=== PATIENT | female | born 1960 | race African-American/Black ===

== ENCOUNTER 2022-07-12 11:29 | Inpatient (IN) ==
[2022-07-12] MEDS ORDERED: FAMOTIDINE 20 MG/2 ML VIAL IV ONE (12:15)
[2022-07-12] MEDS ORDERED: ONDANSETRON 4 MG/2 ML VIAL IV PRN ×2 (12:31→15:35)
[2022-07-12] MEDS ORDERED: LACTATED RINGERS 1,000 ML IV SCH (13:00)
[2022-07-12] MEDS ORDERED: propofoL 200 MG/20 ML VIAL IV ONE ×2 (14:23→14:25)
[2022-07-12] MEDS ORDERED: ETOMIDATE 20 MG/10 ML VIAL IV ONE (14:23)
[2022-07-12] MEDS ORDERED: LIDOCAINE 2% 5 ML VIAL ONE (14:23)
[2022-07-12] MEDS ORDERED: fentaNYL 100 MCG/2 ML VIAL ONE (14:27)
[2022-07-12] MEDS ORDERED: PROMETHAZINE 25 MG/1 ML VIAL IM PRN (15:35)
[2022-07-12 16:18] LABS: Basophils % 0.3 % (0.0-0.8); Eosinophils # 0.1 10*3/uL (0.0-0.87); Eosinophils % 0.9 % (0.00-10.9); Hematocrit 31.8 VOL% (35.7-47.0); Hemoglobin 9.5 GM/DL (12.0-16.0); Immature Granulocytes % 0.3 %; Immature Granulocytes Absolute 0.04 #; Lymphocytes # 1.7 10*3/uL (1.4-4.0); Lymphocytes % 13.9 % (21.3-54.2); Mean Corpuscular HGB Conc 29.9 GM/DL (32-36); Mean Corpuscular Volume 59.2 FL (87-102); Monocytes # 0.6 10*3/uL (0.11-0.8); Monocytes % 5.2 % (1.7-12.7); Neutrophils % 79.4 % (38.7-73.9); Platelet Count 396 T/CUMM (130-400); Red Blood Count 5.37 MC/CUMM (3.8-5.5); Red Cell Distribution Width 21.2 % (9.3-17.3)
[2022-07-12 16:31] LABS: Calcium 9.4 MG/DL (8.5-10.1); Osmolality,Calculated 276.4 MOS/KG (273-304); Potassium 3.2 MMOL/L (3.5-5.1)
[2022-07-12] MEDS ORDERED: IBUPROFEN 600 MG TABLET PO ONE (17:00)
[2022-07-12] MEDS ORDERED: ALVIMOPAN 12 MG CAPSULE PO ONE (17:00)
[2022-07-12] MEDS ORDERED: ERTAPENEM 1,000 MG in SODIUM CHLORIDE 0.9% 100 ML IV ONE (17:00)
[2022-07-12] MEDS ORDERED: GABAPENTIN 300 MG CAPSULE PO ONE (17:00)
[2022-07-12] MEDS: LACTATED RINGERS 1,000 ML IV SCH (17:58)
[2022-07-12] MEDS: METOPROLOL SUCCINATE XL 50 MG TABLET PO SCH (18:02)
[2022-07-13] MEDS: LACTATED RINGERS 1,000 ML IV SCH ×4 (03:39→21:55)
[2022-07-13 05:11] LABS: Basophils % 0.3 % (0.0-0.8); Eosinophils # 0.1 10*3/uL (0.0-0.87); Eosinophils % 1.1 % (0.00-10.9); Hematocrit 29.7 VOL% (35.7-47.0); Hemoglobin 8.7 GM/DL (12.0-16.0); Immature Granulocytes % 0.4 %; Immature Granulocytes Absolute 0.05 #; Lymphocytes # 1.8 10*3/uL (1.4-4.0); Lymphocytes % 13.7 % (21.3-54.2); Mean Corpuscular HGB Conc 29.3 GM/DL (32-36); Mean Corpuscular Volume 60.6 FL (87-102); Monocytes # 0.8 10*3/uL (0.11-0.8); Monocytes % 6.1 % (1.7-12.7); Neutrophils % 78.4 % (38.7-73.9); Platelet Count 342 T/CUMM (130-400); Red Cell Distribution Width 20.9 % (9.3-17.3); White Blood Count 12.7 T/CUMM (4-12)
[2022-07-13 05:45] LABS: Microcytosis 2+
[2022-07-13 05:46] LABS: Hypochromia 1+; Ovalocytes Slight; Platelet Estimate Normal; Target Cells Few
[2022-07-13 05:48] LABS: Calcium 9.4 MG/DL (8.5-10.1); Osmolality,Calculated 280.1 MOS/KG (273-304); Potassium 3.3 MMOL/L (3.5-5.1)
[2022-07-13] MEDS: PANTOPRAZOLE 40 MG TABLET PO SCH (06:05)
[2022-07-13] MEDS ORDERED: LIDOCAINE 2% 5 ML VIAL ONE (06:34)
[2022-07-13] MEDS ORDERED: DEXAMETHASONE 4 MG/1 ML VIAL ONE ×2 (06:34→10:12)
[2022-07-13] MEDS ORDERED: SEVOFLURANE 1 UNIT/15 MINUTE INH ONE ×11 (06:34→12:13)
[2022-07-13] MEDS ORDERED: ROCURONIUM 50 MG/5 ML VIAL IV ONE ×2 (06:34→10:12)
[2022-07-13] MEDS ORDERED: ACETAMINOPHEN INJ 1,000 MG/100 ML VIAL IV ONE (06:34)
[2022-07-13] MEDS ORDERED: ONDANSETRON 4 MG/2 ML VIAL ONE (06:34)
[2022-07-13] MEDS ORDERED: propofoL 200 MG/20 ML VIAL IV ONE (06:34)
[2022-07-13] MEDS ORDERED: fentaNYL 100 MCG/2 ML VIAL ONE (06:35)
[2022-07-13] MEDS ORDERED: MIDAZOLAM 2 MG/2 ML VIAL ONE (06:35)
[2022-07-13] MEDS ORDERED: BUPIVACAINE MPF 0.25% 10 ML VIAL ONE (09:29)
[2022-07-13] MEDS ORDERED: TISSUE ADHESIVE 1 EACH APPLICATOR TOP ONE (09:29)
[2022-07-13] MEDS ORDERED: LIDOCAINE 2%/EPI 20 ML VIAL ONE (09:30)
[2022-07-13] MEDS ORDERED: INDOCYANINE GREEN 25 MG VIAL IV ONE (09:53)
[2022-07-13] MEDS ORDERED: LACTATED RINGERS 1,000 ML IV ONE (11:08)
[2022-07-13] MEDS ORDERED: NEOSTIGMINE 10 MG/10 ML VIAL ONE (11:25)
[2022-07-13] MEDS ORDERED: PHENYLEPHRINE 1 MG/10 ML SYRINGE IV ONE (11:25)
[2022-07-13] MEDS ORDERED: GLYCOPYRROLATE 0.4 MG/2 ML VIAL ONE (11:25)
[2022-07-13] MEDS ORDERED: SUGAMMADEX 200 MG/2 ML VIAL IV ONE (12:05)
[2022-07-13] MEDS ORDERED: HYDROmorphone 1 MG/1 ML SYRINGE IV PRN ×2 (12:20→14:22)
[2022-07-13] MEDS ORDERED: ONDANSETRON 4 MG/2 ML VIAL IV PRN (12:20)
[2022-07-13] MEDS ORDERED: HYDROmorphone 1 MG/1 ML SYRINGE ONE (12:26)
[2022-07-13] MEDS: ENOXAPARIN 40 MG/0.4 ML SYRINGE SUBCUT SCH (14:13)
[2022-07-13 15:21] LABS: Basophils % 0.2 % (0.0-0.8); Hematocrit 30.4 VOL% (35.7-47.0); Hemoglobin 9.2 GM/DL (12.0-16.0); Immature Granulocytes % 0.8 %; Immature Granulocytes Absolute 0.15 #; Lymphocytes # 0.6 10*3/uL (1.4-4.0); Lymphocytes % 2.9 % (21.3-54.2); Mean Corpuscular HGB Conc 30.3 GM/DL (32-36); Mean Corpuscular Volume 59.4 FL (87-102); Mean Platelet Volume 9.9 FL (9.6-12.0); Monocytes # 0.1 10*3/uL (0.11-0.8); Monocytes % 0.7 % (1.7-12.7); Neutrophils % 95.4 % (38.7-73.9); Platelet Count 379 T/CUMM (130-400); Red Blood Count 5.12 MC/CUMM (3.8-5.5); White Blood Count 19.2 T/CUMM (4-12)
[2022-07-13 15:38] LABS: Calcium 9.1 MG/DL (8.5-10.1); Osmolality,Calculated 278.5 MOS/KG (273-304); Potassium 3.5 MMOL/L (3.5-5.1)
[2022-07-13 15:57] LABS: Hypochromia 1+; Lymphocytes 5 % (20-55); Microcytosis 1+; Total Cells Counted 100
[2022-07-13 15:59] LABS: Platelet Estimate Adequate; Target Cells Slight
[2022-07-13] MEDS: METOPROLOL SUCCINATE XL 50 MG TABLET PO SCH (16:51)
[2022-07-13] MEDS: KETOROLAC 30 MG/1 ML VIAL IV SCH ×2 (16:52→21:22)
[2022-07-13] MEDS: ALVIMOPAN 12 MG CAPSULE PO SCH (21:21)
[2022-07-14] MEDS: KETOROLAC 30 MG/1 ML VIAL IV SCH ×3 (02:33→10:40)
[2022-07-14] MEDS: PANTOPRAZOLE 40 MG TABLET PO SCH (05:43)
[2022-07-14 06:02] LABS: Basophils % 0.1 % (0.0-0.8); Eosinophils % 0.1 % (0.00-10.9); Hematocrit 26.5 VOL% (35.7-47.0); Immature Granulocytes % 0.4 %; Immature Granulocytes Absolute 0.06 #; Lymphocytes # 1.4 10*3/uL (1.4-4.0); Lymphocytes % 10.1 % (21.3-54.2); Mean Corpuscular HGB Conc 30.2 GM/DL (32-36); Mean Corpuscular Volume 59.8 FL (87-102); Monocytes # 1.1 10*3/uL (0.11-0.8); Monocytes % 7.5 % (1.7-12.7); Neutrophils % 81.8 % (38.7-73.9); Platelet Count 302 T/CUMM (130-400); Red Blood Count 4.43 MC/CUMM (3.8-5.5); Red Cell Distribution Width 20.7 % (9.3-17.3); White Blood Count 13.9 T/CUMM (4-12)
[2022-07-14 06:16] LABS: Calcium 9.1 MG/DL (8.5-10.1); Osmolality,Calculated 280.3 MOS/KG (273-304); Potassium 3.5 MMOL/L (3.5-5.1)
[2022-07-14 08:52] VITALS: BP 116/54
[2022-07-14] MEDS ORDERED: ESCITALOPRAM 10 MG TABLET PO SCH (09:00)
[2022-07-14] MEDS: ALVIMOPAN 12 MG CAPSULE PO SCH (10:13)
[2022-07-14] MEDS: METOPROLOL SUCCINATE XL 50 MG TABLET PO SCH (10:13)
[2022-07-14] MEDS: LACTATED RINGERS 1,000 ML IV SCH (10:40)
[2022-07-14] MEDS: ENOXAPARIN 40 MG/0.4 ML SYRINGE SUBCUT SCH (10:40)
== END 2022-07-14 10:50 | disposition home or self-care (01) | DRG 908 ==
LOC: N.GILAB 11:29 → N.5E 15:06
PROVIDERS: ADMIT Surgery; ATTEND Surgery